=== PATIENT | female | born 1995 | race Caucasian/White ===

== ENCOUNTER 2016-07-26 13:25 | Emergency (ER) | payer MEDICAID, OTHER ==
[~2016-07-26] VITALS: Ht 154.9 cm; Wt 59.0 kg
[~2016-07-26 13:25] MED LIST: ALBU0.08 NEB; ALBU6.7H INH; ALBU8I INH; METR1GEL2 PV; PRED-503 PO; PRED20 PO; [UNRECOGNIZED DRUG - CODE] VAGINAL
[2016-07-26 13:26] VITALS: BP 122/67; PULSE 107; RESP 20; TEMP 98; O2SAT 100
[2016-07-26] MEDS ORDERED: predniSONE 20 MG TAB PO ONE (17:30)
[2016-07-26] MEDS ORDERED: ALBU0.08 NEB (17:34)
[2016-07-26] MEDS ORDERED: PRED-503 PO (17:34)
[2016-07-26] MEDS ORDERED: AZIT250T3 PO (17:34)
[2016-07-26] MEDS ORDERED: ALBU6.7H INH (17:34)
[2016-07-26] MEDS: RESP: ALBUTEROL 2.5 MG/3 ML NEB (SCH) INH (17:35)
--- NOTE | 2016-07-26 17:46 | PD ---
HPI Chief Complaint: Respiratory Symptoms Time Seen by Provider: 17:42 Travel History International Travel<30 days: No Contact w/Intl Traveler<30days: No Traveled to known affect area: No History of Present Illness HPI 20-year-old female that presents to the ED for evaluation of asthma exacerbation. Per patient she's been having symptoms for the past 2 weeks. Per patient she has nebulizer at home which his been using with some relief but she doesn't have the inhaler to take with her whenever she has exacerbations outside of home. Per patient she believes that this is the cause of her worsening symptoms. Per patient and her asthma is usually seasonal. She denies any recent hospitalization or intubation for this. She states that right now she feels short of breath but has no other symptoms. Patient does have some cough whenever she gets short of breath. She denies any other medical complaint at this time. Has no allergies to medication. States that she socially compliant but again she ran out of her inhaler and currently her insurance was changed so she does not have a PCP to get her refills on. She denies any pain. No fevers chills or sweats. No recent travel. PFSH Past Medical History Hx Anticoagulant Therapy: No Asthma: Yes Cardiovascular Problems: No Chemotherapy: No Cerebrovascular Accident: No Developmental Delay: No Diabetes: No Diminished Hearing: No Respiratory: Yes (ASTHMA) Immunizations Current: Yes Migraines: Yes ?: Unknown Social History Alcohol Use: No Tobacco Use: No Substance Use: No Allergies-Medications (Allergen,Severity, Reaction): Coded Allergies: No Known Allergies (Verified , 07/26/16) Reported Meds & Prescriptions Reported Meds & Active Scripts Active Azithromycin 250 Mg Tab 250 Mg PO DIRECTED Take 2 tabs (500 mg) on day 1 then 1 tab daily x 4 days. Deltasone (Prednisone) 20 Mg Tab 20 Mg PO BID Proventil Hfa 6.7 GM Inh (Albuterol Sulfate) 90 Mcg/Act Aer 2 Puff INH Q4-6H PRN Albuterol Neb (Albuterol Sulfate) 2.5 Mg/3 Ml Neb 2.5 Mg NEB Q4HR NEB While awake Review of Systems Except as stated in HPI: all other systems reviewed are Neg Physical Exam Narrative GENERAL: Well-nourished, well-developed patient in no apparent distress. SKIN: Warm and dry. HEAD: Atraumatic. Normocephalic. EYES: Pupils equal and round reactive to light and accommodation. No scleral icterus. No injection or drainage. ENT: No nasal bleeding or discharge. Mucous membranes pink and moist. TMs are clear with no sign of infection or perforation. No mastoid tenderness. Ear canals are intact bilaterally. No lymphadenopathy. Nostril mucosa is red and moist with clear mucus noted. No sinus tenderness to palpation noted. Tonsils are not enlarged or swollen. No ulvua Deviation. Tongue is midline. NECK: Trachea midline. No JVD. No meningeal signs noted CARDIOVASCULAR: Regular rate and rhythm. RESPIRATORY: No accessory muscle use. Mild wheezing heard in the lower lung villegas.. Breath sounds equal bilaterally. GASTROINTESTINAL: Abdomen soft, non-tender, nondistended. Hepatic and splenic margins not palpable. MUSCULOSKELETAL: Extremities without clubbing, cyanosis, or edema. No obvious deformities. NEUROLOGICAL: Awake and alert. No obvious cranial nerve deficits. Motor grossly within normal limits. Five out of 5 muscle strength in the arms and legs. Normal speech. PSYCHIATRIC: Appropriate mood and affect; insight and judgment normal. Data Data Last Documented VS Vital Signs Date Time Temp Pulse Resp B/P Pulse Ox O2 Delivery O2 Flow Rate FiO2 07/26/16 13:26 98.0 107 20 122/67 100 Room Air Orders Prednisone (Deltasone) (07/26/16 17:30) Albuterol Neb (Albuterol Neb) (07/26/16 17:30) MDM Medical Decision Making Medical Screen Exam Complete: Yes Emergency Medical Condition: Yes Medical Record Reviewed: Yes Differential Diagnosis Asthma exacerbation versus chronic asthma versus asthma versus pneumonia versus bronchitis Narrative Course 20-year-old female that presents to the ED for evaluation of asthma. Patient was properly examined and was found to have signs and symptoms consistent appears to be asthma exacerbation. Patient was given breathing treatments here. Patient was given prednisone by mouth. Patient was rechecked and does feel improved. Reason for exacerbation is because patient has been out of her inhalers. This time patient was given a refill of her albuterol inhaler, prednisone, nebulizer medication as well as prescriptive for azithromycin to cover for infection although I believe this is less likely. Take OTC meds as needed. Patient was told to follow up closely with PCP. See ED if worsening symptoms. Diagnosis Primary Impression: Acute asthma exacerbation Qualified Code: J45.31 - Mild persistent asthma with acute exacerbation Patient Instructions: General Instructions Additional Instructions: Motrin and Tylenol for pain and fever. You can use [id number] antihistamine as well as well as Mucinex as needed for runny nose and congestion. Cough drops for cough as needed. Drink plenty of fluids. Follow-up with PCP. See ED for worsening symptoms. Med/Other Pt SpecificInfo: Prescription(s) given Scripts Azithromycin 250 Mg [id number] Mg PO DIRECTED #6 TAB Take 2 tabs (500 mg) on day 1 then 1 tab daily x 4 days. Prov:Nabeel Dowling MD 07/26/16 Prednisone (Deltasone)20 Mg Tab20 Mg PO BID #10 TAB Prov:Nabeel Dowling MD 07/26/16 Albuterol 6.7 GM Inh (Proventil Hfa 6.7 GM Inh)90 Mcg/Act Aer2 Puff INH Q4-6H PRN (SHORTNESS OF BREATH) #1 INHALER Prov:Nabeel Dowling MD 07/26/16 Albuterol Neb 2.5 Mg/3 Ml Neb2.5 Mg NEB Q4HR NEB #60 NEBULE Ref 0 While awake Prov:Nabeel Dowling MD 07/26/16 Disposition: 01 DISCHARGE HOME Condition: Stable Gael Arredondo Jul 26, 2016 17:46
== END 2016-07-26 18:48 | disposition home or self-care (01) ==
LOC: NEPE 13:25
DX: J45.901 Unspecified asthma with (acute) exacerbation (principal); R06.02 Shortness of breath
CPT/HCPCS: 94664; 99283; J7512; J7613

== ENCOUNTER 2016-08-18 07:36 | Emergency (ER) | payer MEDICAID ==
[~2016-08-18] VITALS: Ht 154.9 cm; Wt 57.0 kg
[~2016-08-18 07:36] MED LIST changes: -ALBU8I INH; +AZIT250T3 PO; -METR1GEL2 PV; -PRED20 PO; -[UNRECOGNIZED DRUG - CODE] VAGINAL
[2016-08-18 07:37] VITALS: BP 129/71; PULSE 115; RESP 16; TEMP 98.9; O2SAT 99
--- NOTE | 2016-08-18 07:52 | PD ---
HPI Chief Complaint: ENT Complaint Time Seen by Provider: 07:48 Travel History International Travel<30 days: No Contact w/Intl Traveler<30days: No Traveled to known affect area: No History of Present Illness HPI Patient is a 20-year-old female presenting to emergency for evaluation of a sore throat and wheezing. Patient states her symptoms started 2 days ago, for the last day her throat has become more sore and she reports a swollen tonsil. She also states that she has been wheezing and short of breath at night. Patient has a history of asthma as well as tobacco use. She denies any headache , chest pain, nausea, vomiting, diarrhea, abdominal pain, dysphagia or drooling. PFSH Past Medical History Hx Anticoagulant Therapy: No Asthma: Yes Cardiovascular Problems: No Chemotherapy: No Cerebrovascular Accident: No Developmental Delay: No Diabetes: No Diminished Hearing: No Respiratory: Yes (ASTHMA) Immunizations Current: Yes Migraines: Yes ?: Not Social History Alcohol Use: No Tobacco Use: Yes Substance Use: No Allergies-Medications (Allergen,Severity, Reaction): Coded Allergies: No Known Allergies (Verified , 07/26/16) Reported Meds & Prescriptions Reported Meds & Active Scripts Active Ventolin Hfa 18 GM Inh (Albuterol Sulfate) 90 Mcg/Act Aer 2 Puff INH Q4-6H PRN Prednisone 50 Mg Tab 50 Mg PO DAILY Amoxicillin 875 Mg Tab 875 Mg PO BID 10 Days Azithromycin 250 Mg Tab 250 Mg PO DIRECTED Take 2 tabs (500 mg) on day 1 then 1 tab daily x 4 days. Deltasone (Prednisone) 20 Mg Tab 20 Mg PO BID Proventil Hfa 6.7 GM Inh (Albuterol Sulfate) 90 Mcg/Act Aer 2 Puff INH Q4-6H PRN Albuterol Neb (Albuterol Sulfate) 2.5 Mg/3 Ml Neb 2.5 Mg NEB Q4HR NEB While awake Review of Systems Except as stated in HPI: all other systems reviewed are Neg General / Constitutional: Positive: Fever, No: Chills Eyes: No: Visual changes HENT: Positive: Sore Throat, Congestion, No: Headaches Cardiovascular: No: Chest Pain or Discomfort Respiratory: Positive: Cough, Shortness of Breath, Wheezing Gastrointestinal: No: Nausea, Vomiting, Abdominal Pain Genitourinary: No: Dysuria Musculoskeletal: No: Myalgias Neurologic: No: Weakness, Dizziness Physical Exam Narrative GENERAL: Well-nourished, well-developed patient. SKIN: Focused skin assessment warm/dry. HEAD: Normocephalic. ENT: Mucosa pink and moist. Moderate erythema with exudates noted on the left tonsil, 2+ tonsillar hypertrophy on the left. No uvular edema. No uvular, palatal deviation. Airway patent. Nasal turbinates appear normal without nasal blood, purulent drainage or septal hematoma. EYES: No scleral icterus. No injection or drainage. NECK: Supple, trachea midline. No JVD left submandibular lymphadenopathy CARDIOVASCULAR: Regular rate and rhythm without murmurs, gallops, or rubs. RESPIRATORY: Breath sounds equal bilaterally. No accessory muscle use. Expiratory wheezing noted throughout right lung field, slightly diminished in bases. GASTROINTESTINAL: Abdomen soft, non-tender, nondistended. MUSCULOSKELETAL: No cyanosis, or edema. BACK: Nontender without obvious deformity. No CVA tenderness. Data Data Last Documented VS Vital Signs Date Time Temp Pulse Resp B/P Pulse Ox O2 Delivery O2 Flow Rate FiO2 08/18/16 08:21 99 21 08/18/16 07:37 98.9 115 16 129/71 Room Air Orders Group A Rapid Strep Screen (08/18/16 07:47) Methylprednisolone So Succ Inj (Solumedr (08/18/16 08:00) Albuterol-Ipratropium Neb (Duoneb Neb) (08/18/16 08:00) Strep Culture (Group A) (08/18/16 07:59) Chest, Pa & Lat (08/18/16 ) MDM Medical Decision Making Medical Screen Exam Complete: Yes Emergency Medical Condition: Yes Interpretation(s) Vital Signs Date Time Temp Pulse Resp B/P Pulse Ox O2 Delivery O2 Flow Rate FiO2 08/18/16 07:37 98.9 115 16 129/71 99 Room Air Differential Diagnosis Strep pharyngitis versus URI versus bronchitis versus pneumonia versus asthma exacerbation versus other Narrative Course Patient is a 20-year-old female with a past medical history significant for asthma presenting to the emergency department for evaluation of a sore throat for the last 48 hours. Symptoms have progressed, worsened over the last 24 hours. Patient also reports wheezing and has been using her albuterol inhaler. On exam patient is noted to have expiratory wheezing noted throughout right lung field. Throat culture obtained, we'll obtain a chest x-ray, DuoNeb 3 ordered as well as Solu-Medrol IM. Patient is mildly tachycardic on arrival, this could be secondary to albuterol use. Patient last took ibuprofen last night. She is afebrile currently. Strep is negative, shows no acute disease. Patient's lung sounds are improved markedly after administration of DuoNeb treatments. Patient's heart rate reassessed at 88. Patient be given amoxicillin as well as a short course of oral steroids. She is encouraged to return to emergency department for any new or worsening symptoms, she is encouraged follow-up with her primary care provider. Patient verbalized understanding of these instructions. Patient stable for discharge. Diagnosis Primary Impression: Pharyngitis Qualified Code: J02.9 - Pharyngitis, unspecified etiology Additional Impression: Acute asthma exacerbation Qualified Code: J45.901 - Asthma with acute exacerbation, unspecified asthma severity Referrals: Primary Care Physician Patient Instructions: Asthma (ED), General Instructions, Pharyngitis (ED) Departure Forms: Tests/Procedures, Work Release Enter return to work date: Aug 19, 2016 Additional Instructions: Follow-up with her primary doctor Complete full course of antibiotics as directed Use albuterol inhaler as needed and as previously prescribed Return to emergency department for any new or worsening symptoms Med/Other Pt SpecificInfo: Prescription(s) given Scripts Albuterol 18 GM Inh (Ventolin Hfa 18 GM Inh)90 Mcg/Act Aer2 Puff INH Q4-6H PRN ( SHORTNESS OF BREATH) #1 INHALER Ref 0 Prov:Miranda Castelan 08/18/16 Prednisone 50 Mg Tab50 Mg PO DAILY #5 TAB Ref 0 Prov:Miranda Castelan 08/18/16 Amoxicillin 875 Mg [id number] Mg PO BID 10 Days Ref 0 Prov:Miranda Castelan 08/18/16 Disposition: 01 DISCHARGE HOME Condition: Stable Miranda Castelan Aug 18, 2016 07:52
[2016-08-18] MEDS ORDERED: methylPREDNISolone SOD SUCC 125 MG/2 ML VIAL IM ONE (08:00)
[2016-08-18] MEDS: RESP: ALBUTEROL 2.5 MG/IPRATROPIUM 0.5 MG NEB (SCH) INH ×2 (08:15→08:18)
[2016-08-18 08:21] VITALS: O2SAT 99
--- NOTE | 2016-08-18 09:22 | RADRPT ---
EXAM DATE/TIME: 08/18/2016 09:20 [facility] COMPARISON: No previous studies available for comparison. INDICATIONS : Wheezing. MEDICAL HISTORY : Asthma SURGICAL HISTORY : None. ENCOUNTER: Initial ACUITY: 1 day PAIN SCORE: 0/10 LOCATION: Bilateral chest FINDINGS: PA and lateral views of the chest demonstrate the lungs to be symmetrically aerated without evidence of mass, infiltrate or effusion. The cardiomediastinal contours are unremarkable. Osseous structure s are intact. CONCLUSION: Normal examination. Moisés Reed MD on August 18, 2016 at 9:20 Board Certified Radiologist. This report was verified electronically.
[2016-08-18] MEDS ORDERED: PRED50 PO (09:27)
[2016-08-18] MEDS ORDERED: VENTAER INH (09:27)
[2016-08-18] MEDS ORDERED: AMOX875T PO (09:27)
== END 2016-08-18 10:39 | disposition home or self-care (01) ==
LOC: NEPK 07:36
DX: J02.9 Acute pharyngitis, unspecified (principal); J45.901 Unspecified asthma with (acute) exacerbation; Z72.0 Tobacco use
CPT/HCPCS: 71020; 87081; 87880; 94640; 94664; 96372; 99283; J2930

== ENCOUNTER 2016-11-16 22:19 | Emergency (ER) | payer MEDICAID ==
[~2016-11-16 22:19] MED LIST changes: +AMOX875T PO; +PRED50 PO; +VENTAER INH
[2016-11-16 22:20] VITALS: BP 135/72; PULSE 94; RESP 16; TEMP 98.4; O2SAT 98
--- NOTE | 2016-11-16 22:25 | PD ---
Physical Exam Date Seen by Provider: Nov 16, 2016 Time Seen by Provider: 22:24 Narrative 21 yo female here for SOB. History of asthma. Not getting better. Cough. Productive. Not taking meds. Has not seen anybody for this. No sick contacts. Vitals are stable in triage. Awaiting Bed placement. Data Data Last Documented VS Vital Signs Date Time Temp Pulse Resp B/P Pulse Ox O2 Delivery O2 Flow Rate FiO2 11/16/16 22:20 98.4 94 16 135/72 98 Room Air [facility] Medical Record Reviewed: Yes Supervised Visit with JOSE ALFREDO: Gael Velez Nov 16, 2016 22:25
[2016-11-16] MEDS ORDERED: ALBU0.08 NEB (22:42)
[2016-11-16] MEDS ORDERED: ALBU6.7H INH (22:42)
[2016-11-16] MEDS ORDERED: PRED50 PO (22:42)
[2016-11-16] MEDS ORDERED: predniSONE 20 MG TAB PO ONE (22:45)
--- NOTE | 2016-11-16 22:47 | PD ---
HPI Chief Complaint: Respiratory Symptoms Time Seen by Provider: 22:44 Travel History International Travel<30 days: No Contact w/Intl Traveler<30days: No Traveled to known affect area: No History of Present Illness HPI 21-year-old female with a history of asthma presents emergency Department with complaints of cough and shortness of breath. She states that she ran out of her inhaler. She does have her albuterol liquid that she uses and her nebulizer at home. She states that she's been using this periodically without relief. He persists with shortness of breath, cough, dyspnea on exertion and general malaise. She denies any fever or chills. No ear pain, sore throat, sputum production, nausea, vomiting, abdominal pain or urinary symptoms. Symptoms are moderate. Worse with activity. Some temporary relief with albuterol nebulizer. PFSH Past Medical History Narrative Medical Asthma Hx Anticoagulant Therapy: No Asthma: Yes Cardiovascular Problems: No Chemotherapy: No Cerebrovascular Accident: No Developmental Delay: No Diabetes: No Diminished Hearing: No Respiratory: Yes (ASTHMA) Immunizations Current: Yes Migraines: Yes Tetanus Vaccination: Unknown ?: Not LMP: now Past Surgical History Surgical History: No Previous Surgery Social History Alcohol Use: Yes (occ) Tobacco Use: No Substance Use: No Allergies-Medications (Allergen,Severity, Reaction): Coded Allergies: No Known Allergies (Verified , 11/16/16) Reported Meds & Prescriptions Reported Meds & Active Scripts Active Albuterol Neb (Albuterol Sulfate) 2.5 Mg/3 Ml Neb 2.5 Mg NEB Q4HR NEB While awake Proventil Hfa 6.7 GM Inh (Albuterol Sulfate) 90 Mcg/Act Aer 2 Puff INH Q4-6H PRN Prednisone 50 Mg Tab 50 Mg PO DAILY Albuterol Neb (Albuterol Sulfate) 2.5 Mg/3 Ml Neb 2.5 Mg NEB Q4HR NEB While awake Review of Systems Except as stated in HPI: all other systems reviewed are Neg Physical Exam Narrative GENERAL: Well-developed, well-nourished in mild respiratory distress. Nontoxic appearing. HEAD: Normocephalic, atraumatic. EYES: Pupils equal round and reactive. Extraocular motions intact. No scleral icterus. No injection or drainage. ENT: TMs clear without erythema. The external auditory canals clear. Nose: clear . Posterior pharynx is pink and moist. No tonsillar edema or exudate. Uvula midline. Airway patent. NECK: Trachea midline.Supple, nontender, moves head freely. No central bony tenderness or spasm. CARDIOVASCULAR: Regular rate and rhythm without murmurs, gallops, or rubs. RESPIRATORY: Patient has inspiratory next story wheezes. No Rales or rhonchi. Patient speaks in 3-4 word sentences. She has mild respiratory distress. GASTROINTESTINAL: Abdomen soft, non-tender, nondistended. No hepato-splenomegaly , or palpable masses. No guarding. EXTREMITIES: No clubbing, cyanosis, or edema. No joint tenderness, effusion, or edema noted. BACK: Nontender without deformity or crepitance. No flank tenderness. Data Data Last Documented VS Vital Signs Date Time Temp Pulse Resp B/P Pulse Ox O2 Delivery O2 Flow Rate FiO2 11/16/16 22:20 98.4 94 16 135/72 98 Room Air Orders Prednisone (Deltasone) (11/16/16 22:45) Albuterol-Ipratropium Neb (Duoneb Neb) (11/16/16 22:45) MDM Medical Decision Making Medical Screen Exam Complete: Yes Emergency Medical Condition: Yes Medical Record Reviewed: Yes Differential Diagnosis MDM: High Differential diagnoses: Pneumonia, bronchitis, URI, asthma, RAD, legionnaire's disease, SARS, ARDS, influenza, bronchiolitis, RSV,PE,CHF Narrative Course Patient is given 60 mg of prednisone by mouth and 2 DuoNeb times. Patient has received 2 DuoNeb times. She is reexamined. She has had resolution of her wheezing and shortness of breath. She is medically cleared for discharge. This is acute asthma exacerbation Diagnosis Primary Impression: Acute asthma exacerbation Qualified Code: J45.21 - Mild intermittent asthma with acute exacerbation Patient Instructions: General Instructions Additional Instructions: Rest. Increase fluids. Tylenol and Advil. Robitussin-DM. prednisone, and albuterol. Followup with your DrJosué in one week. Return to the ER for any problems. Med/Other Pt SpecificInfo: Prescription(s) given Scripts Albuterol Neb 2.5 Mg/3 Ml Neb2.5 Mg NEB Q4HR NEB #60 NEBULE While awake Prov:Little Shook MD 11/16/16 Albuterol 6.7 GM Inh (Proventil Hfa 6.7 GM Inh)90 Mcg/Act Aer2 Puff INH Q4-6H PRN (SHORTNESS OF BREATH) #1 INHALER Prov:Little Shook MD 11/16/16 Prednisone 50 Mg Tab50 Mg PO DAILY #5 TAB Ref 0 Prov:Little Shook MD 11/16/16 Disposition: 01 DISCHARGE HOME Condition: Stable Joel Grace Nov 16, 2016 22:47
[2016-11-16] MEDS: RESP: ALBUTEROL 2.5 MG/IPRATROPIUM 0.5 MG NEB (SCH) INH (23:28)
== END 2016-11-16 23:50 | disposition home or self-care (01) ==
LOC: NEPK 22:19
DX: J45.901 Unspecified asthma with (acute) exacerbation (principal)
CPT/HCPCS: 94640; 94664; 99284; J7512

== ENCOUNTER 2016-12-05 20:13 | Observation (INO) | payer OTHER, MEDICAID ==
[~2016-12-05 20:13] MED LIST changes: -AMOX875T PO; -AZIT250T3 PO; -PRED-503 PO; -VENTAER INH
[2016-12-05 20:21] VITALS: BP 126/69; PULSE 110; RESP 16; TEMP 97.8; O2SAT 94
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
[2016-12-05] MEDS ORDERED: SODIUM CHLORIDE 0.9% FLUSH 10 ML FLUSH IVF PRN (22:00)
[2016-12-05] MEDS ORDERED: ACETAMINOPHEN 325 MG TAB PO PRN (22:00)
[2016-12-05] MEDS ORDERED: ONDANSETRON HCL 4 MG/2 ML VIAL IV PRN (22:00)
[2016-12-05 22:05] VITALS: RESP 14; O2SAT 97
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
[2016-12-05 22:32] LABS: AUTOMATED NEUTROPHIL # 13.7 TH/MM3 (1.8-7.7); BASOPHIL # 0.1 TH/MM3 (0-0.2); BASOPHIL % 0.4 % (0.0-2.0); EOSINOPHIL % 0.1 % (0.0-4.0); HEMATOCRIT 33.8 % (35.0-46.0); HEMO FLAGS DIFF FINAL; LYMPH % 19.9 % (9.0-44.0); LYMPHOCYTE # 3.7 TH/MM3 (1.0-4.8); MEAN CELL VOLUME 68.3 FL (80.0-100.0); MEAN CORPUSCULAR HEMOGLOBIN 21.2 PG (27.0-34.0); MEAN CORPUSCULAR HGB CONC 31.1 % (32.0-36.0); MONO % 5.3 % (0.0-8.0); NEUT % 74.3 % (16.0-70.0); PLATELET COUNT 340 TH/MM3 (150-450); RED BLOOD COUNT 4.96 MIL/MM3 (4.00-5.30); RED CELL DISTRIBUTION WIDTH 17.5 % (11.6-17.2); WHITE BLOOD COUNT 18.4 TH/MM3 (4.0-11.0)
[2016-12-05 22:44] LABS: BICARBONATE 23.6 MEQ/L (21.0-32.0); POTASSIUM 3.8 MEQ/L (3.5-5.1)
[2016-12-05 22:46] LABS: APTT (PATIENT) 25.8 SEC (24.3-30.1); PROTHROMBIN TIME - PATIENT 10.8 SEC (9.8-11.6)
[2016-12-05] MEDS: SODIUM CHLOR 0.9% 1000 ML INJ 1,000 ML IV SCH (23:09)
[2016-12-06] VITALS (9 sets, daily range): BP systolic 95–111; BP diastolic 53–64; PULSE 78–111; RESP 14–58; TEMP 98.2–99; O2SAT 98–99
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
[2016-12-06] MEDS: SODIUM CHLOR 0.9% 1000 ML INJ 1,000 ML IV SCH ×2 (06:00→13:37)
[2016-12-06] MEDS ORDERED: SODIUM CHLORIDE 0.9% FLUSH 10 ML FLUSH IV FLUSH SCH (09:00)
--- NOTE | 2016-12-06 11:10 | RADRPT ---
EXAM DATE/TIME: 12/06/2016 10:29 [facility] COMPARISON: CT BRAIN W/O CONTRAST, December 05, 2016, 21:07. INDICATIONS : Evaluate hemorrhage. RADIATION DOSE: 32.61 CTDIvol (mGy) MEDICAL HISTORY : Asthma. SURGICAL HISTORY : None. ENCOUNTER: Initial ACUITY: 1 day PAIN SCALE: 2/10 LOCATION: cranial TECHNIQUE: Multiple contiguous axial images were obtained of the head. Using automated exposure control and adj ustment of the mA and/or kV according to patient size, radiation dose was kept as low as reasonably a chievable to obtain optimal diagnostic quality images. DICOM format image data is available electro nically for review and comparison. FINDINGS: The previously seen punctate areas of hemorrhage in the left basal ganglia is again identified n ot significantly changed. There is however a vague area of questionable hemorrhage versus artifact in volving the left temporal lobe within the middle cranial fossa without any mass effect. There are no extra-axial fluid collections or signs of acute infarction. CONCLUSION: Punctate left basal ganglia hemorrhages have not changed and there is questionable hemorrhage versus artifact involving the left temporal lobe. Randi Estrada MD on December 06, 2016 at 10:41 Board Certified Radiologist. This report was verified electronically.
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
[2016-12-06] MEDS ORDERED: PANTOPRAZOLE SOD 40 MG DELAYED RELEASE TAB PO SCH (12:00)
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
== END 2016-12-06 17:26 | disposition home or self-care (01) ==
LOC: NEPC 20:13 → NEDA 21:56 → N03A 23:34
PROVIDERS: ADMIT Neurological Surgery; ATTEND Neurological Surgery
DX: S06.301A Unspecified focal traumatic brain injury with loss of consciousness of 30 minutes or less, initial encounter (principal); J45.909 Unspecified asthma, uncomplicated; V89.2XXA Person injured in unspecified motor-vehicle accident, traffic, initial encounter
CPT/HCPCS: 70450; 71010; 80048; 84703; 85025; 85610; 85730; 87641; 97161; 99285; G0378; J7030

== ENCOUNTER 2017-05-18 09:31 | Emergency (ER) | payer MEDICAID ==
[~2017-05-18] VITALS: Ht 154.9 cm; Wt 56.5 kg
[~2017-05-18 09:31] MED LIST changes: -ALBU6.7H INH; +FLUTI110I INH; -PRED50 PO; +VENTAER INH
[2017-05-18 09:32] VITALS: BP 125/64; PULSE 118; RESP 20; TEMP 100.1; O2SAT 98
[2017-05-18] MEDS ORDERED: PRED20 PO (17:12)
== END 2017-05-18 12:28 | disposition left against medical advice (07) ==
LOC: NED 09:31
DX: Z04.9 Encounter for examination and observation for unspecified reason (principal)
CPT/HCPCS: 99281

== ENCOUNTER 2017-05-18 12:52 | Emergency (ER) | payer MEDICAID ==
[2017-05-18 13:57] VITALS: BP 102/60; PULSE 113; RESP 20; TEMP 98.8; O2SAT 98
[2017-05-18] MEDS ORDERED: RESP: ALBUTEROL 2.5 MG/3 ML NEB (SCH) NEB ONE (15:30)
[2017-05-18] MEDS ORDERED: predniSONE 20 MG TAB PO ONE (15:30)
--- NOTE | 2017-05-18 15:38 | PD ---
HPI Chief Complaint: Respiratory Symptoms Time Seen by Provider: 15:23 Travel History International Travel<30 days: No Contact w/Intl Traveler<30days: No Traveled to known affect area: No History of Present Illness HPI This patient complains of asthma exacerbation. She says she's been sick daily for 2 months. She is using inhaler every day. He complains of runny nose cough congestion and fever for the last several days. She use her nebulizer at home. She still wheezing. Symptoms severity is moderate. No alleviating factors. No exacerbating factors. PFSH Past Medical History Hx Anticoagulant Therapy: No Asthma: Yes Cancer: No Cardiovascular Problems: No Chemotherapy: No COPD: No Cerebrovascular Accident: No Developmental Delay: No Diabetes: No Diminished Hearing: No Endocrine: No Genitourinary: No Immune Disorder: No Musculoskeletal: No Neurologic: No Psychiatric: No Reproductive: No Respiratory: Yes Immunizations Current: Yes Migraines: Yes Sleep Apnea: No ?: Not LMP: LAST MONTH Past Surgical History Other Surgery: No Social History Alcohol Use: Yes (occ) Tobacco Use: No Substance Use: No Allergies-Medications (Allergen,Severity, Reaction): Coded Allergies: No Known Allergies (Verified Adverse Reaction, Unknown, 05/18/17) Reported Meds & Prescriptions Reported Meds & Active Scripts Active Prednisone 20 Mg Tab 40 Mg PO DAILY Take 40 mg (2 tablets) daily for 5 days Ventolin Hfa 18 GM Inh (Albuterol Sulfate) 90 Mcg/Act Aer 2 Puff INH Q4-6H PRN Review of Systems General / Constitutional: Positive: Fever Eyes: No: Visual changes HENT: Positive: Rhinorrhea, Congestion, No: Headaches Cardiovascular: No: Chest Pain or Discomfort Respiratory: Positive: Cough, Shortness of Breath, Wheezing Gastrointestinal: No: Abdominal Pain Genitourinary: No: Dysuria Musculoskeletal: No: Pain Skin: No Rash Neurologic: No: Weakness Psychiatric: No: Depression Endocrine: No: Polydipsia Hematologic/Lymphatic: No: Easy Bruising Physical Exam Narrative GENERAL: Well-nourished, well-developed patient in no apparent distress. SKIN: Focused skin assessment reveals no rash and nodules. Skin is Warm and dry. HEAD: Atraumatic. Normocephalic. EYES: Pupils equal and round. No scleral icterus. No injection or drainage. ENT: No nasal bleeding or discharge. Mucous membranes pink and moist. Throat clear NECK: Trachea midline. No JVD. No meningeal signs CARDIOVASCULAR: Regular rate and rhythm. No murmur appreciated. RESPIRATORY: No accessory muscle use. Expiratory wheezing . Breath sounds equal bilaterally. GASTROINTESTINAL: Abdomen soft, non-tender, nondistended. Hepatic and splenic margins not palpable. MUSCULOSKELETAL: No obvious deformities. No clubbing. No cyanosis. No edema. NEUROLOGICAL: Awake and alert. No obvious cranial nerve deficits. Motor grossly within normal limits. Normal speech. PSYCHIATRIC: Appropriate mood and affect; insight and judgment normal. Data Data Last Documented VS Vital Signs Date Time Temp Pulse Resp B/P (MAP) Pulse Ox O2 Delivery O2 Flow Rate FiO2 05/18/17 13:57 98.8 113 20 102/60 (74) 98 Orders Orders Chest, Single Ap (05/18/17 ) Albuterol Neb (Albuterol Neb) (05/18/17 15:30) Prednisone (Deltasone) (05/18/17 15:30) Influenzae A/B Antigen (05/18/17 15:28) MDM Medical Decision Making Medical Screen Exam Complete: Yes Emergency Medical Condition: Yes Medical Record Reviewed: Yes Differential Diagnosis Asthma exacerbation, bronchitis, pneumonia, flu syndrome Narrative Course I have reviewed the patient's electronic medical record. Patient's been here many times for asthma exacerbations. I gave her nebulizer treatments and a dose of prednisone I reviewed her chest x-ray which shows hyperinflation but no consolidation Influenza swab is negative On recheck she is breathing much better with almost 0 wheezing I wrote her 5 days of prednisone Stable for outpatient follow-up Diagnosis Primary Impression: Acute asthma exacerbation Qualified Codes: J45.41 - Moderate persistent asthma with (acute) exacerbation Additional Instructions: The patient was advised to follow up with their physician and return if they worsen. Med/Other Pt SpecificInfo: Prescription(s) given Scripts Prednisone (Prednisone) 20 Mg Tab 40 MG PO DAILY, #10 TAB 0 Refills Take 40 mg (2 tablets) daily for 5 days Prov: Chicho Marie MD 05/18/17 Disposition: 01 DISCHARGE HOME Condition: Stable Chicho Marie MD May 18, 2017 15:38
--- NOTE | 2017-05-18 15:52 | RADRPT ---
EXAM DATE/TIME: 05/18/2017 15:43 [facility] COMPARISON: CHEST SINGLE AP, December 05, 2016, 22:02. INDICATIONS : Shortness of breath. MEDICAL HISTORY : Asthma. SURGICAL HISTORY : None. ENCOUNTER: Initial ACUITY: 2 weeks PAIN SCORE: 0/10 LOCATION: Bilateral chest FINDINGS: Marked hyperinflation without pneumothorax or pneumomediastinum. Mild peribronchial thickening. No infiltrate. CONCLUSION: Marked hyperinflation Krzysztof Cao MD FACR on May 18, 2017 at 15:48 Board Certified Radiologist. This report was verified electronically.
[2017-05-18] MEDS ORDERED: PRED20 PO (17:12)
== END 2017-05-18 17:37 | disposition home or self-care (01) ==
LOC: PHEFT 12:52
DX: J45.41 Moderate persistent asthma with (acute) exacerbation (principal)
CPT/HCPCS: 71045; 87804; 94664; 99284; J7512; J7613

== ENCOUNTER 2017-10-22 20:59 | Emergency (ER) | payer SELFPAY ==
[~2017-10-22 20:59] MED LIST changes: -ALBU0.08 NEB; -FLUTI110I INH; +PRED20 PO
[2017-10-22 21:11] VITALS: BP 126/77; PULSE 94; RESP 18; TEMP 98.1; O2SAT 99
[2017-10-22] MEDS ORDERED: PRED20 PO (21:48)
[2017-10-22] MEDS ORDERED: ALBUAER3 INH (21:48)
--- NOTE | 2017-10-22 21:48 | PD ---
HPI Chief Complaint: Respiratory Symptoms Time Seen by Provider: 21:36 Travel History International Travel<30 days: No Contact w/Intl Traveler<30days: No Traveled to known affect area: No History of Present Illness HPI 22-year-old female with history of asthma presents with wheezing and cough. Symptoms started a few days ago. Symptoms are mild, aggravated by asthma with no relieving factors. She is not currently prescribed any medication to help with her symptoms. Denies fevers, chills, chest pain. No other complaints. PFSH Past Medical History Hx Anticoagulant Therapy: No Asthma: Yes Cancer: No Cardiovascular Problems: No Chemotherapy: No COPD: No Cerebrovascular Accident: No Developmental Delay: No Diabetes: No Diminished Hearing: No Endocrine: No Genitourinary: No Immune Disorder: No Musculoskeletal: No Neurologic: No Psychiatric: No Reproductive: No Respiratory: Yes Immunizations Current: Yes Migraines: Yes Sleep Apnea: No ?: Not LMP: 10/17/17 Past Surgical History Surgical History: No Previous Surgery Other Surgery: No Social History Alcohol Use: Yes Tobacco Use: No Substance Use: No Allergies-Medications (Allergen,Severity, Reaction): Coded Allergies: No Known Allergies (Verified Adverse Reaction, Unknown, 10/22/17) Reported Meds & Prescriptions Reported Meds & Active Scripts Active Prednisone 20 Mg Tab 20 Mg PO BID 5 Days Proair Hfa 8.5 GM Inh (Albuterol Sulfate) 90 Mcg/Act Aer 2 Puff INH Q4-6H PRN 108 mcg/actuation Prednisone 20 Mg Tab 40 Mg PO DAILY Take 40 mg (2 tablets) daily for 5 days Ventolin Hfa 18 GM Inh (Albuterol Sulfate) 90 Mcg/Act Aer 2 Puff INH Q4-6H PRN Review of Systems Except as stated in HPI: all other systems reviewed are Neg Physical Exam Narrative GENERAL: Well-nourished female no acute distress SKIN: Warm and dry. HEAD: Atraumatic. Normocephalic. EYES: Pupils equal and round. No scleral icterus. No injection or drainage. ENT: No nasal bleeding or discharge. Mucous membranes pink and moist. NECK: Trachea midline. No JVD. CARDIOVASCULAR: Regular rate and rhythm. No murmur appreciated. RESPIRATORY: No accessory muscle use. Mild wheezing bilaterally. Data Data Last Documented VS Vital Signs Date Time Temp Pulse Resp B/P (MAP) Pulse Ox O2 Delivery O2 Flow Rate FiO2 10/22/17 21:29 18 10/22/17 21:11 98.1 94 126/77 (93) 99 Orders Orders Prednisone (Deltasone) (10/22/17 22:00) Albuterol-Ipratropium Neb (Duoneb Neb) (10/22/17 22:00) MDM Medical Decision Making Medical Screen Exam Complete: Yes Emergency Medical Condition: Yes Medical Record Reviewed: Yes Differential Diagnosis Asthma exacerbation, bronchitis, pneumonia Narrative Course The patient will be treated with bronchodilators and prednisone. She is stable for discharge. Diagnosis Primary Impression: Acute asthma exacerbation Additional Instructions: Medication as prescribed, follow-up with your primary care physician, return for any emergent medical conditions. Med/Other Pt SpecificInfo: Prescription(s) given Scripts Prednisone (Prednisone) 20 Mg Tab 20 MG PO BID for 5 Days, #10 TAB 0 Refills Prov: Jason Eason MD 10/22/17 Albuterol 8.5 GM Inh (Proair Hfa 8.5 GM Inh) 90 Mcg/Act Aer 2 PUFF INH Q4-6H Y for SHORTNESS OF BREATH, #1 INHALER 0 Refills 108 mcg/actuation Prov: Jason Eason MD 10/22/17 Disposition: 01 DISCHARGE HOME Condition: Stable Elijah Allen Oct 22, 2017 21:48
[2017-10-22] MEDS ORDERED: RESP: ALBUTEROL 2.5 MG/IPRATROPIUM 0.5 MG NEB (SCH) INH ONE (22:00)
[2017-10-22] MEDS ORDERED: predniSONE 20 MG TAB PO ONE (22:00)
[2017-10-22 23:11] VITALS: O2SAT 99
[2017-10-22] MEDS ORDERED: ALBU0.08 NEB (23:53)
== END 2017-10-23 00:15 | disposition home or self-care (01) ==
LOC: NEPD 20:59
DX: J45.901 Unspecified asthma with (acute) exacerbation (principal); Z79.51 Long term (current) use of inhaled steroids; Z79.899 Other long term (current) drug therapy
CPT/HCPCS: 94664; 99283; J7512